=== PATIENT | male | born 1960 | race Caucasian/White ===

== ENCOUNTER 2024-09-02 19:43 | Emergency (ER) | payer OTHER ==
[2024-09-02] MEDS: Ondansetron 4 MG Tab.DIS PO ONE (20:52)
[2024-09-03] MEDS: Acetaminophen 325 MG Tab PO ONE (01:32)
[2024-09-03 06:00] VITALS: BP 110/80; PULSE 76
== END 2024-09-03 06:34 | disposition home or self-care (01) ==
LOC: MW.ED 19:43
DX: S06.0XAA Concussion with loss of consciousness status unknown, initial encounter (principal); E78.00 Pure hypercholesterolemia, unspecified; K21.9 Gastro-esophageal reflux disease without esophagitis; Z91.018 Allergy to other foods; Z79.82 Long term (current) use of aspirin; Z79.899 Other long term (current) drug therapy; Z75.8 Other problems related to medical facilities and other health care; W01.198A Fall on same level from slipping, tripping and stumbling with subsequent striking against other object, initial encounter
CPT/HCPCS: 70450; 72125; 73030; 99284; A9270; 99283